=== PATIENT | female | born 1975 | race African-American/Black ===

== ENCOUNTER 2019-10-02 01:47 | Outpatient (CLI) | payer OTHER | END 2019-10-02 01:48 | disposition EMS.NT | LOC: EMS 01:47 | PROVIDERS: ATTEND Surgery | DX: R00.0 Tachycardia, unspecified (principal); R07.9 Chest pain, unspecified; F41.0 Panic disorder [episodic paroxysmal anxiety]; G43.909 Migraine, unspecified, not intractable, without status migrainosus ==

== ENCOUNTER 2019-10-02 03:01 | Emergency (ER) | payer OTHER ==
--- NOTE | 2019-10-02 03:09 | ED Physician Documentation ---
History of Present Illness - Stated complaint Stated Complaint: RAPID HR/CP, SANTOS - Chief complaint Chief Complaint: Cardiac PD PAST MEDICAL HISTORY - Allergies Allergies/Adverse Reactions: Allergies Allergy/AdvReac Type Severity Reaction Status Date / Time No Known Drug Allergies Allergy Verified 10/02/19 03:07 Results - Vitals Vitals: Vital Signs - 24 hr 10/02/19 03:00 Temperature 36.5 C Heart Rate 73 Respiratory 16 Rate Blood Pressure 117/89 H O2 Saturation 98 Oxygen O2 Source Room air - EKG (time done) 3:02 Other comments: Other comments (Rate 68, rhythm sinus, there is no ST segment elevation or depression. No abnormal T wave inversions. There is probable left ventricular hypertrophy.)
[2019-10-02 03:23] LABS: BASOPHILS % (AUTO) 0.5 %; EOSINOPHILS # (AUTO) 0.1 10^3/uL (0.0-0.7); EOSINOPHILS % (AUTO) 1.2 %; HGB - HEMOGLOBIN 12.5 g/dL (12.0-16.0); LYMPHOCYTES # (AUTO) 1.9 10^3/uL (1.5-3.5); MEAN CORPUSCULAR HEMOGLOBIN 28.9 pg (27.0-31.0); MEAN CORPUSCULAR HGB CONC 33.6 g/dL (32.0-36.0); MEAN CORPUSCULAR VOLUME 85.9 fL (81.0-99.0); MEAN PLATELET VOLUME 9.1 fL (7.9-10.8); MONOCYTES # (AUTO) 0.6 10^3/uL (0.0-1.0); NEUTROPHILS # (AUTO) 5.6 10^3/uL (1.5-6.6); NEUTROPHILS % (AUTO) 67.9 %; PLT - PLATELET COUNT 251 10^3/uL (130-450); RED BLOOD COUNT 4.33 10^6/uL (4.20-5.40); RED CELL DISTRIBUTION WIDTH 13.2 % (12.0-15.0); WHITE BLOOD COUNT 8.3 x10^3/uL (4.8-10.8)
[2019-10-02] MEDS ORDERED: diphenhydrAMINE INJ 50 MG/ML VIAL IVP STA (03:23)
[2019-10-02] MEDS ORDERED: METOCLOPRAMIDE 10 MG/2 ML VIAL IVP STA (03:23)
[2019-10-02] MEDS ORDERED: KETOROLAC 15 MG/ML VIAL IVP STA (03:23)
--- NOTE | 2019-10-02 03:27 | ED Physician Documentation ---
History of Present Illness - Stated complaint Stated Complaint: RAPID HR/CP, SANTOS - Chief complaint Chief Complaint: Cardiac - Additonal information Additional information: This is a 43-year-old female history of migraines and hysterectomy who presents with a headache as well as an episode of fast heart rate that has now resolved. Patient states that the week she has been having headache which is mild and bifrontal, but at times it is moderate. She gets headaches from time to time and this a similar to her typical headache except that it has persisted a bit longer. She is taken Maxalt and Tylenol for the headache, and she has not had significant relief from it. She denies any weakness or numbness, no fever or neck stiffness. Tonight she got up to get a sip of water and she felt a bit lightheaded, she also like her heart was going fast so this caused her to panic and start breathing heavily, her then called EMS. This episode resolved after 20 minutes or so and currently she continues to have a mild headache but she denies difficulty breathing. She has very mild discomfort in her epigastric region. She has no history of cardiac problems or abnormal heart rhythms. She has had panic attacks in the past but not for years. No leg swelling or redness. PD PAST MEDICAL HISTORY - Past Medical History Past Medical History: Yes Cardiovascular: None Respiratory: None Neuro: Migraines Endocrine/Autoimmune: None GI: None IMPROVEMENT LEAD: None : None HEENT: None Psych: None Musculoskeletal: None Derm: None - Past Surgical History Past Surgical History: Yes /IMPROVEMENT LEAD: Hysterectomy - Allergies Allergies/Adverse Reactions: Allergies Allergy/AdvReac Type Severity Reaction Status Date / Time No Known Drug Allergies Allergy Verified 10/02/19 03:07 - Social History Does the pt smoke?: No Smoking Status: Never smoker Does the pt drink ETOH?: No Does the pt have substance abuse?: No - Immunizations Immunizations are current?: Yes - POLST Patient has POLST: No PD ED PE NORMAL - Vitals Vital signs reviewed: Yes - General General: Alert and oriented X 3, No acute distress - HEENT HEENT: PERRL - Neck Neck: Supple, no meningeal sign - Cardiac Cardiac: RRR, No murmur - Respiratory Respiratory: Clear bilaterally - Abdomen Abdomen: Normal bowel sounds, Soft, Non tender, Non distended - Derm Derm: Warm and dry - Extremities Extremities: No deformity - Neuro Neuro: Alert and oriented X 3, substance abuse nurse 2-12 intact, No motor deficit, No sensory deficit, Normal speech - Psych Psych: Normal mood, Normal affect Results - Vitals Vitals: Oxygen O2 Source Room air - EKG (time done) 3:02 Other comments: Other comments (Rate 68, rhythm sinus, there is no ST segment elevation or depression, no abnormal T wave inversions. There is possible left ventricular hypertrophy, intervals within normal limits) 3:43 Other comments: Other comments (Rate 136, rhythm sinus tachycardia, there is no ST segment elevation or depression, no abnormal T wave inversions. There is LVH by voltage criteria in aVL.) - Labs Labs: Laboratory Tests 10/02/19 10/02/19 10/02/19 03:15 03:15 03:15 WBC 8.3 RBC 4.33 Hgb 12.5 Hct 37.2 MCV 85.9 MCH 28.9 MCHC 33.6 RDW 13.2 Plt Count 251 MPV 9.1 Neut # (Auto) 5.6 Lymph # (Auto) 1.9 Winn # (Auto) 0.6 Eos # (Auto) 0.1 Baso # (Auto) 0.0 Absolute Nucleated RBC 0.00 Nucleated RBC % 0.0 Sodium 136 Potassium 3.5 Chloride 104 Carbon Dioxide 24 Anion Gap 8.0 BUN 13 Creatinine 0.8 Estimated GFR (MDRD) 95 Glucose 100 Calcium 8.8 Total Bilirubin 0.3 AST 17 ALT 14 Alkaline Phosphatase 58 Troponin I High Sens Total Protein 6.7 Albumin 3.5 Globulin 3.2 Albumin/Globulin Ratio 1.1 Lipase 44 TSH 2.30 Serum HCG, Qual 10/02/19 10/02/19 03:15 03:15 WBC RBC Hgb Hct MCV MCH MCHC RDW Plt Count MPV Neut # (Auto) Lymph # (Auto) Winn # (Auto) Eos # (Auto) Baso # (Auto) Absolute Nucleated RBC Nucleated RBC % Sodium Potassium Chloride Carbon Dioxide Anion Gap BUN Creatinine Estimated GFR (MDRD) Glucose Calcium Total Bilirubin AST ALT Alkaline Phosphatase Troponin I High Sens < 2.3 L Total Protein Albumin Globulin Albumin/Globulin Ratio Lipase TSH Serum HCG, Qual NEGATIVE - Rads (name of study) CXR Radiology: Prelim report reviewed (Normal 2 view chest) PD MEDICAL DECISION MAKING - ED course Complexity details: considered differential (SVT, dysrhythmia, ACS, electrolyte abnormality, tension headache, migraine, ICH, dehydration, anemia) ED course: On arrival pt is very well appearing. Regarding her headache, this is typical for her, was gradual in onset, and she has a normal neurologic exam, no fever, no head trauma, no other red flags. She was given a migraine cocktail with very good response. Labs are unremarkable, no anemia. HCG negative. Regarding her heart racing, She initially had a normal heart rate on my evaluation. During her stay her heart rate did elevate, repeat EKG showed sinus tachycardia, and speaking with patient she did feel anxious prior to this episode occuring. CXR is unremarkable, EKG shows no signs of ischemia, and no signs of WPW, or other obvious electrical abnormality that would predisposition her to tachydysrhythmia. I did discuss the possible LVH and follow up with her PCP on this. HS Troponin is negative and ACS very unlikely. Heart rate was normal in the 70s on repeat evaluation, Patient is asymptomatic, feeling better, and ready to go home. I discussed return precautions, PCP follow up and precautions for lightheadedness, and patient was discharged home. Departure - Departure Disposition: 01 Home, Self Care Clinical Impression: Heart palpitations Headache Qualifiers: Headache type: unspecified Headache chronicity pattern: acute headache Intractability: not intractable Qualified Code(s): R51 - Headache Condition: Good Instructions: ED Chest Pain Atypical Unkn Cause Follow-Up: Natalya Van MD [Primary Care Provider] - Within 1 week Comments: Your labs, EKG, and chest x-ray today were reassuring. You did have an episode of your heart rate going up, but you appeared to be in a normal rhythm. Please hydrate well, take extra time when standing up from sitting or lying down to help prevent lightheadedness. If you are having any new or worsening chest pain, trouble breathing, severe headache, or any other concerning symptoms please return to the emergency department. Please follow-up with your primary care provider on your symptoms as well. Discharge Date/Time: 10/02/19 04:55
[2019-10-02 03:36] LABS: ALBUMIN 3.5 g/dL (3.2-5.5); ALBUMIN/GLOBULIN RATIO 1.1 (1.0-2.2); BILIRUBIN,TOTAL 0.3 mg/dL (0.2-1.0); CALCIUM 8.8 mg/dL (8.5-10.3); CREATININE 0.8 mg/dL (0.4-1.0); TOTAL PROTEIN 6.7 g/dL (6.7-8.2)
[2019-10-02 03:47] LABS: HCG,QUALITATIVE BLOOD NEGATIVE
[2019-10-02] MEDS ORDERED: SODIUM CHLORIDE 0.9% 1,000 ML IV ONE (04:06)
--- NOTE | 2019-10-02 04:29 | XRAY Report ---
Reason: Chest pain Procedure Date: 10/02/2019 Accession Number: [id number] / [id number] Procedure: XR - Chest 2 View X-Ray CPT Code: 28163 Final Report FULL RESULT: EXAM: CHEST RADIOGRAPHY EXAM DATE: 10/02/2019 03:59 AM. CLINICAL HISTORY: Chest pain. COMPARISON: None. TECHNIQUE: 2 views. FINDINGS: Lungs/Pleura: No focal opacities evident. No pleural effusion. No pneumothorax. Normal volumes. Mediastinum: Heart and mediastinal contours are unremarkable. Other: None. IMPRESSION: Normal 2-view chest radiography. [facility]
[2019-10-02 05:23] VITALS: BP 112/86
== END 2019-10-02 04:55 | disposition home or self-care (01) ==
LOC: ED 03:01
DX: R00.2 Palpitations (principal); R51 Headache; R42 Dizziness and giddiness
CPT/HCPCS: 36415; 71046; 83690; 84484; 84703; 93005; 96361; 96374; 96375; 99281; 99284; J1200; J2765; 80053; 84443; 85025

== ENCOUNTER 2020-07-01 11:08 | Outpatient (CLI) | payer OTHER ==
[2020-07-01 12:15] VITALS: BP 140/83
--- NOTE | 2020-07-01 12:15 | SLEEP CARE CONSULTATION ---
Information from patient questionnaire entered by Deysi Flores. I have reviewed and concur with the information entered by Deysi Flores. This document represents the service I personally performed and the decisions made by , Lizett Saleem ARNP. History of Present Illness Service Date and Time: 07/01/2020 1108 Reason for Visit: New patient Chief Complaint: reports: Insomnia, Unrefreshed sleep, Snoring, Excessive daytime sleepiness, Observed pauses in breathing, Fatigue, Frequent awakenings at night Date of Onset: 06/2020 Usual bedtime: 2300; weekend midnight or later Time it takes to fall asleep: 1+ hours Snores at night: Yes Observed to quit breathing while asleep: Yes Sleeps alone due to snoring: No Number of times waking at night: at least 5 Reasons for waking at night: reports: Snoring, Gasping for air, Bathroom. denies: Choking Toss, Turn, or Twitch while sleeping: Yes Recalls having dreams: Yes Usually gets out of bed at: 0700 on weekdays; 0800 on weekends Feels refreshed in the morning: No Morning headache: Yes (1-2 times a week, last in mornings but all day sometimes) Sleepy or fatigued during the day: Yes Ever fallen asleep while driving: No (sleepy eyes at stoplights; makes sure not to drive if tired) Takes day naps: Yes (3 times a week for about an hour; sometimes tries but is unable to sleep) Dreams during day naps: No Prior sleep studies: No Additional HPI information: I had the pleasure of seeing JACOB IVORY today regarding the possibility of her having a sleep disorder. Her current complaints are insomnia, snoring, observed pauses in breathing, fatigue and daytime sleepiness. She states he uses a CPAP machine and he encouraged her to be checked out due to her snoring, pauses in breathing and excessive sleepiness. She has a history of having an elevated heart rate due to anxiety. Her PCP has had her wear a heart monitor and was found to just have tachycardia with no arrhythmia. She tells me that sometimes when she is sleeping she wakes up feeling liker her heart is pausing in beats or beating harder. She has had palpitations with her anxiety. She did have an episode of high blood pressure after her hysterectomy in 2016 an d is just monitoring for this with a wrist BP cuff at home. Her father and mother both snore but neither had been checked for sleep disordered breathing. - Parasomnia Symptoms Ever been unable to move upon waking from sleep: No Walks in sleep: No Talks in sleep: No Ever acted out dreams in sleep: Yes (yelled out during a dream) Ever felt weak in the knees when startled or emotional: Yes (feels like body is getting limp) Bothered by creepy, crawly, restless sensations in legs: Yes (itchiness in legs, sometimes in arm; sometimes when sleeping and daytime) Problems with memory or concentration: Yes (sometimes gets forgetful or "dazes out" on conversations if really tired) Subjective Initial [place] Sleepiness Scale score: 21 (in 2020) Past Medical History Past Medical History: reports: Arrythmia (possible pauses in heart beat while sleeping, some palpitations), Anxiety, GERD, Other (hysterectomy in 2016). 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 Patient is and lives in [place]. Have you smoked in the past 12 months: No Alcohol use: Yes Alcohol amount and frequency: 1 glass wine every few months Caffeine use: Yes Caffeine amount and frequency: 1x/month Family History Family history of sleep disordered breathing: No (mother has alzheimer's) Family Hx Sleep Apnea: Mother: Snoring, Father: Snoring Allergies and Home Medications Drug allergies reviewed: Yes (NKDA) Home medication list reviewed: Yes Allergy and home medication list: One a day vitamin Fish oil Garlic pill Vitamin C Review of Systems Weight gain over past 5 years: 10 Cardiovascular: reports: high blood pressure, palpitations, other (possible pauses in heart beat at night and some chest heaviness prior to belching). denies: chest pain, irregular heart rate or pulse, leg or foot swelling Respiratory: reports: shortness of breath. denies: chronic cough Gastrointestinal: reports: heartburn. denies: difficulty swallowing Urinary: reports: incontinence Neurological: reports: headaches, gait or balance problems (balance is off/? equilibrium or dizziness). denies: seizure, head trauma, speech dysfunction Psychiatric: reports: anxiety. denies: Attention Deficit Hyperactivity, depression, mood disorder, claustrophobia Ear/Nose/Throat: reports: nasal congestion (has allergies with PND), sinus problems, wisdom teeth removed. denies: nose bleeds, dry mouth/throat, injury to nose, tonsillectomy Endocrine: reports: sluggishness, too hot or cold Musculoskeletal: reports: joint pain, muscle pain or cramping Immunologic: reports: sneezing, allergies to food or environment Physical Exam Blood Pressure: 140/83 Cuff size: long Heart Rate: 128 (Anxious) O2 Saturation: 100 Height: 5 ft 4 in Weight: 178 lb Body Mass Index: 30.5 BMI Classification: Obese Neck circumference: 13.5 HEENT: No craniofacial malformation Nostrils: patent to airflow Turbinates: normal Septum: midline Mouth and throat: narrow oropharynx Soft palate: normal Hard palate: normal Uvula: normal Uvula visualization: 50% Mallampati Class II Tongue: enlarged in size with teeth suarez on lateral edges Tonsils: 2+ Chin and jaw: normal size and position Neck: normal w/o lymphadenopathy or thyromegaly Heart: regular rate and rhythm (tachycardia) Lungs: clear bilaterally Impression and Plan 1. Suspected Obstructive Sleep Apnea-Hypopnea Syndrome, as suggested by a history of loud and irregular snoring, observed cessation of breath while asleep, gasping or choking in sleep, morning headache, frequent awakening during the night, unrefreshed sleep, cognitive impairment, and excessive daytime sleepiness. I reviewed with patient that a narrow oropharynx and obesity are common predisposing factors for obstructive sleep apnea-hypopnea syndrome. 2. Elevated heart rate today at 128. Patient has a history of elevated heart rate due to anxiety. She states she is feeling anxiety during the visit today. She has had a previous heart monitor that she wore for a week for evaluation with no significant arrhythmia findings. She will continue to consult with her PCP with her elevated heart rate. She denied any chest pain, shortness of breath, palpitations or dizziness today. I recommend proceeding to polysomnography to confirm the diagnosis and to assess severity. If the patient has significant sleep disordered breathing, a manual CPAP titration study will also be performed to find the optimal treatment pressure. I informed the patient of what the sleep studies involve and after some discussion, obtained agreement to proceed. The pathophysiology of obstructive sleep apnea-hypopnea syndrome was discussed with the patient and health risks of cardiovascular and cerebrovascular disease if not treated. [facility] brochure for obstructive sleep apnea-hypopnea syndrome given and reviewed. Risks of drowsy driving discussed in detail and patient advised to avoid long distance driving and to ice puller at the first sign of drowsiness. Patient agreed to plan. [facility] drowsy driving brochure given. Patient concerned that she might not be able to sleep and would like to try a sleeping medication the night of the study. She has never taken Ambien before, just melatonin to help her sleep. I will order a one time dose of 5 mg Ambien for the night of sleep study. * Schedule polysomnography +- manual CPAP titration study. * Ambien 5 mg for night of study to help her sleep * Avoid long distance driving or driving when feeling sleepy. * Avoid alcohol, sedative and muscle relaxant around bedtime. * Attempt to lose weight. * Review instructions provided by trained office staff on how to prepare for the sleep study. * Return for follow-up after sleep study completed. Visit Type: In Office Time Spent with Patient (minutes): 38 Provider Statement: I spent 100% of the Face to Face Visit with the patient with greater than 50% spent counseling the patient and coordination of care.
== END 2020-07-01 11:09 | disposition home or self-care (01) ==
LOC: SC 11:08
PROVIDERS: ATTEND Nurse Practitioner Family
DX: R06.83 Snoring (principal); R53.83 Other fatigue; G47.10 Hypersomnia, unspecified; G47.8 Other sleep disorders; R06.81 Apnea, not elsewhere classified; E66.9 Obesity, unspecified; Z68.30 Body mass index [BMI] 30.0-30.9, adult; R00.0 Tachycardia, unspecified
CPT/HCPCS: 99204; 99212

== ENCOUNTER 2020-08-27 19:36 | Outpatient (CLI) | payer OTHER | END 2020-08-27 19:37 | disposition home or self-care (01) | LOC: SC 19:36 | PROVIDERS: ATTEND Nurse Practitioner Family | DX: R06.83 Snoring (principal); G47.8 Other sleep disorders; R06.81 Apnea, not elsewhere classified; G47.10 Hypersomnia, unspecified; R53.83 Other fatigue; E66.3 Overweight; Z68.30 Body mass index [BMI] 30.0-30.9, adult | CPT/HCPCS: 95810 ==

== ENCOUNTER 2020-09-06 11:13 | Outpatient (CLI) | payer OTHER ==
--- NOTE | 2020-09-06 12:23 | SLEEP CARE CONSULTATION ---
Information from patient questionnaire entered by Brenda Yousif. I have reviewed and concur with the information entered by Brenda Yousif. This document represents the service I personally performed and the decisions made by me, Esvin Oneill MD, [facility]. History of Present Illness Service Date and Time: 09/06/2020 1113 Initial [place] Sleepiness Scale score: 21 (in 2019) Current [place] Sleepiness Scale score: 18 Additional HPI information: HPI: Ms. Gutierrez returned for follow up of the sleep study she had on 08/27/2020. The polysomnography showed that the patient had poor sleep efficiency due to sleep onset insomnia and a prolonged awakening in the middle of the night. The sleep architecture was abnormal for sleep fragmentation and reduced amount of time spent in REM sleep.. Respiratory monitoring showed no evidence of sleep disordered breathing (AHI = 0.0) or hypoxia (brionna oxygen saturation of 94%). The patient slept adequately in supine position (supine AHI = 0.0; non-supine = 0.00). Snore was moderate in intensity. There was no significant periodic leg movement of sleep. Cardiac rhythm was normal sinus rhythm without significant arrhythmia. No abnormal behavior (parasomnia) observed during the night. The patient was informed of these findings. I explained to her that the sleep study normal. Sleep Study - Results Type of Sleep Study: Polysomnography Prior sleep studies: No Allergies and Home Medications Drug allergies reviewed: Yes Home medication list reviewed: Yes Review of Systems Review of systems same as previous: Yes Physical Exam Vital signs obtained and entered by: To minimize the risk of COVID-19 exposure, detailed exam was not performed. Height: 5 ft 4 in Weight: 178 lb Body Mass Index: 30.5 BMI Classification: Obese Impression and Plan IMPRESSION: 1. Primary Snore (ICD-10 R06.83), moderate, but without significant sleep disordered breathing during her limited sleep. The patient has some daytime sleepiness that does not appear to prevent her from daily activities. She has never fallen asleep driving. No treatment is indicated at this time. PLAN: 1. Return for a follow up on as needed basis. 2. Avoid weight gain. Visit Type: In Office Time Spent with Patient (minutes): 10 Provider Statement: I spent 100% of the Face to Face Visit with the patient with greater than 50% spent counseling the patient and coordination of care.
== END 2020-09-06 11:14 | disposition home or self-care (01) ==
LOC: SC 11:13
PROVIDERS: ATTEND Internal Medicine Pulmonary Disease
DX: R06.83 Snoring (principal); E66.9 Obesity, unspecified; Z68.30 Body mass index [BMI] 30.0-30.9, adult
CPT/HCPCS: 99212

== ENCOUNTER 2020-09-27 12:08 | Outpatient (CLI) | payer OTHER | END 2020-09-27 12:09 | disposition home or self-care (01) | LOC: SC 12:08 | PROVIDERS: ATTEND Internal Medicine Pulmonary Disease | DX: R06.83 Snoring (principal); E66.3 Overweight; Z68.30 Body mass index [BMI] 30.0-30.9, adult | CPT/HCPCS: 95806 ==

== ENCOUNTER 2020-10-10 12:43 | Outpatient (CLI) | payer OTHER ==
--- NOTE | 2020-10-10 13:25 | SLEEP CARE CONSULTATION ---
Information from patient questionnaire entered by Brenda Yousif. I have reviewed and concur with the information entered by Brenda Yousif. This document represents the service I personally performed and the decisions made by , Lizett Saleem ARNP. History of Present Illness Service Date and Time: 10/10/2020 1243 Initial [place] Sleepiness Scale score: 21 (in 2019) Current [place] Sleepiness Scale score: 14 Additional HPI information: JACOB IVORY returns for follow up and results of the recently performed home sleep study. The patient was informed of the following findings: no significant sleep disordered breathing with an average AHI of 0.7 and brionna oxygen saturation of 87%. I explained the pathophysiology behind obstructive sleep apnea. Patient does not have sleep apnea and was advised how weight gain could increase the risk of developing sleep apnea in the future. Patient has moderate snoring. Snoring can be reduced by weight loss. Weight loss is best achieved with diet consult. Patient instructed to contact PCP for referral. Snoring can also be treated with an oral appliance from a dentist. Advised to check insurance coverage. In addition, an ENT evaluation can be do to see if other treatment is indicated. Patient was cautioned about risks of drowsy driving until sleepiness symptoms resolve. AAS patient education on Sleep and emotional health given. Sleep Study - Results Type of Sleep Study: Home sleep study Prior sleep studies: Yes Year and Where: 2019 - [facility] Sleep - poly, negative Polysomnography/Home Sleep Study results: Physician Impression: The quality of the study is good. The length of the study is adequate (> 240 minutes). Please also see the tabulated and graphic data. 1. No significant sleep disordered breathing, with an AHI of 0.7/hr and brionna SaO2 of 87%. During the study, the patient had 3 apneas (3 obstructive, 0 central, 0 mixed) and 4 hypopneas. The longest episode lasted 44.5 seconds. The patient slept mostly supine (supine AHI was 0.4 and non-supine, 3.91). 2. Hypoxemia (ICD-10 R09.02), minimal, with the lowest oxygen saturation of 87 % and 0.4 minutes with SaO2 under 90%. Baseline oxygen saturation was normal (Average oxygen saturation was 97%). Allergies and Home Medications Drug allergies reviewed: Yes (NKDA) Home medication list reviewed: Yes (no changes) Review of Systems Review of systems same as previous: Yes (no changes) Physical Exam Heart Rate: 127 (anxious/hx of tachycardia when anxious) O2 Saturation: 99 Height: 5 ft 4 in Weight: 182 lb Body Mass Index: 31.2 BMI Classification: Obese Impression and Plan 1. Snoring but no significant sleep disordered breathing. Patient advised that often weight loss will reduce snoring as well as apnea risk. An oral appliance can also be used for snoring. This would require a dental consultation. Patient cautioned not to use other online appliances as can cause bite issues. Patient is advised to check if insurance will cover. An ENT consult can also be helpful to determine if any other treatment is an option. 2. Hypoxemia, minimal. Patient brionna oxygen saturation was 87% with an 0.4 minutes of her oxygen saturation below 90%. Her average baseline oxygen sa turation was 97%. 3. Anxiety, unspecified. Patient has general anxiety that causes her to have tachycardia. Her heart rate was elevated at 127 today. She states this last year has been stressful and she has been more anxious. Her mother developed Alzheimer's and just the "Covid situation" have added to her regular stressors. Her anxiety may be adding to her daily fatigue and insomnia. We discussed ways to deal with stress/anxiety with meditation daily to decompress, talking with a nuisance wildlife specialist or therapist or follow up with PCP. She voiced understanding and agreement with plan. * Find ways to reduce anxiety so she may get better sleep and reduce daily sleepiness. * Avoid alcohol consumption near bedtime * The patient is cautioned about driving until sleepiness is completely resolved. * Return as needed. Counseling Topics: Weight loss health impact Visit Type: In Office Time Spent with Patient (minutes): 18 Provider Statement: I spent 100% of the Face to Face Visit with the patient with greater than 50% spent counseling the patient and coordination of care.
== END 2020-10-10 12:44 | disposition home or self-care (01) ==
LOC: SC 12:43
PROVIDERS: ATTEND Nurse Practitioner Family
DX: R06.83 Snoring (principal); R09.02 Hypoxemia; F41.9 Anxiety disorder, unspecified; E66.9 Obesity, unspecified; Z68.31 Body mass index [BMI] 31.0-31.9, adult
CPT/HCPCS: 99212; 99213

== ENCOUNTER 2020-11-28 11:17 | Outpatient (CLI) | payer OTHER ==
--- NOTE | 2020-12-05 10:17 | Mammography Report ---
BILATERAL DIGITAL SCREENING MAMMOGRAM 3D/2D: 11/28/2020 CLINICAL: Routine screening. No prior exams were available for comparison. The tissue of both breasts is heterogeneously dense. T his may lower the sensitivity of mammography. No significant masses, calcifications, or other findings are seen in either breast. IMPRESSION: NEGATIVE There is no mammographic evidence of malignancy. A 1 year screening mammogram is recommended. This exam was interpreted at Station ID: [id number]. NOTE: For mammograms, a report in lay terms will be sent to the patient. Approximately 15% of breast malignancies will not be visualized mammographically. In the management of a palpable breast mass, a negative mammogram must not discourage biopsy of a clinically suspicious lesion. Electronically Signed By: Collins Hutchinson M.D., jr/ginette:12/05/2020 08:41:22 ACR BI-RADS Category 1: Negative 3341F PARENCHYMAL PATTERN: (D) - The breast(s) demonstrate(s) heterogeneously dense fibroglandular parcaryny ma. BI-RADS CATEGORY: (1) - 1 RECOMMENDATION: (ANNUAL) - Recommend routine annual screening mammography. [id number] 1 year screening LATERALITY: (B)
== END 2020-11-28 11:18 | disposition home or self-care (01) ==
LOC: DI.N 11:17
DX: Z12.31 Encounter for screening mammogram for malignant neoplasm of breast (principal)

== ENCOUNTER 2020-12-23 11:10 | Outpatient (CLI) | payer OTHER | END 2020-12-23 11:11 | disposition EMS.NT | LOC: EMS 11:10 | DX: I49.8 Other specified cardiac arrhythmias (principal); R06.00 Dyspnea, unspecified ==

== ENCOUNTER 2020-12-23 12:13 | Emergency (ER) | payer OTHER ==
--- NOTE | 2020-12-23 12:47 | ED Physician Documentation ---
History of Present Illness - Stated complaint Stated Complaint: PALPITATIONS - Chief complaint Chief Complaint: Cardiac - History obtained from History obtained from: Patient - History of Present Illness Timing: Yesterday Pain level max: 0 Pain level now: 0 - Additonal information Additional information: 45-year-old female presents to the emergency department with weakness yesterday and again today. She states she recently started on amlodipine for hypertension. Also took hydroxyzine yesterday for itching. Did not eat or drink anything today. Had about a 5-minute period of lightheadedness, dizziness and generalized weakness. No palpitations. No chest pain. No shortness of breath. No nausea or vomiting. Currently asymptomatic. 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 - Present Medications Home Medications: Ambulatory Orders Medication Instructions Recorded Confirmed Amlodipine Besylate [Norvasc] 1 tab PO DAILY 12/23/20 12/23/20 hydrOXYzine pamoate [Hydroxyzine 1 tab PO PRN PRN 12/23/20 12/23/20 Pamoate] - Allergies Allergies/Adverse Reactions: Allergies Allergy/AdvReac Type Severity Reaction Status Date / Time No Known Drug Allergies Allergy Verified 12/23/20 12:24 - Social History Does the pt smoke?: No Smoking Status: Never smoker Does the pt drink ETOH?: No Does the pt have substance abuse?: No - Immunizations Immunizations are current?: Yes - POLST Patient has POLST: No PD ED PE NORMAL - Vitals Vital signs reviewed: Yes - General General: Alert and oriented X 3, No acute distress - HEENT HEENT: Moist mucous membranes - Neck Neck: Supple, no meningeal sign - Cardiac Cardiac: RRR - Respiratory Respiratory: No respiratory distress, Clear bilaterally - Abdomen Abdomen: Soft, Non tender, Non distended - Derm Derm: Warm and dry - Extremities Extremities: No edema, No calf tenderness / cord - Neuro Neuro: Alert and oriented X 3 - Psych Psych: Normal mood, Normal affect Results - Vitals Vitals: Vital Signs - 24 hr 12/23/20 12/23/20 12:15 14:20 Temperature 36.6 C Heart Rate 95 80 Respiratory 18 15 Rate Blood Pressure 129/91 H 116/80 O2 Saturation 99 99 Oxygen O2 Source Room air - EKG (time done) 1218 Rate: Rate (enter#) (82) Rhythm: NSR [place]: Normal Intervals: Normal AL QRS: Normal Ischemia: Normal ST segments - Labs Labs: Laboratory Tests 12/23/20 12/23/20 12/23/20 12:41 12:41 12:41 WBC 8.0 RBC 4.56 Hgb 13.2 Hct 39.8 MCV 87.3 MCH 28.9 MCHC 33.2 RDW 13.2 Plt Count 244 MPV 9.3 Neut # (Auto) 5.3 Lymph # (Auto) 1.9 [place] # (Auto) 0.8 Eos # (Auto) 0.1 Baso # (Auto) 0.1 Absolute Nucleated RBC 0.00 Nucleated RBC % 0.0 Sodium 138 Potassium 3.6 Chloride 103 Carbon Dioxide 22 Anion Gap 13.0 BUN 10 Creatinine 0.9 Estimated GFR (MDRD) 82 L Glucose 97 Calcium 8.9 Total Bilirubin 0.6 AST 17 ALT 14 Alkaline Phosphatase 72 Troponin I High Sens 3.2 Total Protein 7.1 Albumin 3.8 Globulin 3.3 Albumin/Globulin Ratio 1.2 Lipase 31 - Rads (name of study) cxr Radiology: Prelim report reviewed, EMP read contemporaneously, See rad report (no acute disease) PD MEDICAL DECISION MAKING - ED course Complexity details: reviewed results, re-evaluated patient, considered differential, d/w patient ED course: No acute findings on chest x-ray, EKG or laboratory testing. Asymptomatic here. Appears to have had a near syncopal event today. Likely secondary to starting a new medication. After discussion, we will decrease her amlodipine from 10 mg to 5 mg and see if she tolerates this better. Patient feels better after IV fluids as well. Patient counseled regarding signs and symptoms for which I believe and urgent re-evaluation would be necessary. Patient with good understanding of and agreement to plan and is comfortable going home at this time This document was made in part using voice recognition software. While efforts are made to proofread this document, sound alike and grammatical errors may occur. Departure - Departure Disposition: 01 Home, Self Care Clinical Impression: Heart palpitations, Near syncope Condition: Good Instructions: ED Near Syncope Unkn Follow-Up: Natalya Van MD [Primary Care Provider] - Comments: Drink plenty of fluids. Make sure you are eating and drinking regularly. This could be a side effect from your amlodipine, continue this and see if the symptoms recur. If so your doctor may want to decrease your dose. Your laboratory testing, x-ray and EKG did not show any acute abnormalities today. Discharge Date/Time: 12/23/20 14:20
[2020-12-23 12:50] LABS: BASOPHILS # (AUTO) 0.1 10^3/uL (0.0-0.1); BASOPHILS % (AUTO) 0.6 %; EOSINOPHILS # (AUTO) 0.1 10^3/uL (0.0-0.7); EOSINOPHILS % (AUTO) 0.7 %; HCT - HEMATOCRIT 39.8 % (37.0-47.0); HGB - HEMOGLOBIN 13.2 g/dL (12.0-16.0); LYMPHOCYTES # (AUTO) 1.9 10^3/uL (1.5-3.5); LYMPHOCYTES % (AUTO) 23.5 %; MEAN CORPUSCULAR HEMOGLOBIN 28.9 pg (27.0-31.0); MEAN CORPUSCULAR HGB CONC 33.2 g/dL (32.0-36.0); MEAN CORPUSCULAR VOLUME 87.3 fL (81.0-99.0); MEAN PLATELET VOLUME 9.3 fL (7.9-10.8); MONOCYTES # (AUTO) 0.8 10^3/uL (0.0-1.0); MONOCYTES % (AUTO) 9.5 %; NEUTROPHILS # (AUTO) 5.3 10^3/uL (1.5-6.6); NEUTROPHILS % (AUTO) 65.6 %; PLT - PLATELET COUNT 244 10^3/uL (130-450); RED BLOOD COUNT 4.56 10^6/uL (4.20-5.40); RED CELL DISTRIBUTION WIDTH 13.2 % (12.0-15.0)
[2020-12-23 13:06] LABS: ALBUMIN 3.8 g/dL (3.2-5.5); ALBUMIN/GLOBULIN RATIO 1.2 (1.0-2.2); BILIRUBIN,TOTAL 0.6 mg/dL (0.2-1.0); CALCIUM 8.9 mg/dL (8.5-10.3); CREATININE 0.9 mg/dL (0.4-1.0); POTASSIUM 3.6 mmol/L (3.5-5.0); TOTAL PROTEIN 7.1 g/dL (6.7-8.2)
[2020-12-23] MEDS ORDERED: SODIUM CHLORIDE 0.9% 1,000 ML IV STA (13:16)
--- NOTE | 2020-12-23 13:28 | XRAY Report ---
PROCEDURE: Chest 1 View X-Ray INDICATIONS: Chest Pain TECHNIQUE: One view of the chest was acquired. COMPARISON: Chest x-ray 2 view, 10/02/2019. FINDINGS: Surgical changes and devices: None. Lungs and pleura: No pleural effusions or pneumothorax. Lungs are clear. Mediastinum: Mediastinal contours appear normal. Heart size is normal. Bones and chest wall: No suspicious bony lesions. Overlying soft tissues appear unremarkable. IMPRESSION: No acute cardiopulmonary disease. Reviewed by: Gerson Fernandez MD on 12/23/2020 1:26 PM PST Approved by: Gerson Fernandez MD on 12/23/2020 1:26 PM PST Station ID: [id number]
[2020-12-23 14:21] VITALS: BP 116/80
== END 2020-12-23 14:20 | disposition home or self-care (01) ==
LOC: EDUNIT# → ED 12:13
DX: R55 Syncope and collapse (principal); R00.2 Palpitations; R42 Dizziness and giddiness; R53.1 Weakness; I10 Essential (primary) hypertension
CPT/HCPCS: 36415; 80053; 83690; 84484; 85025; 93005; 99284